=== PATIENT | male | born 1985 | race Two or more races ===

== ENCOUNTER 2022-06-04 23:46 | Emergency (ER) | payer OTHER ==
[2022-06-05] MEDS: Ibuprofen 800 MG Tab PO ONE (00:45)
[2022-06-05] MEDS: Acetaminophen 500 MG Tab PO ONE (00:46)
== END 2022-06-05 01:30 | disposition home or self-care (01) ==
LOC: FB.ED 23:46
DX: S46.912A Strain of unspecified muscle, fascia and tendon at shoulder and upper arm level, left arm, initial encounter (principal); S40.012A Contusion of left shoulder, initial encounter; V47.5XXA Car driver injured in collision with fixed or stationary object in traffic accident, initial encounter; Y92.410 Unspecified street and highway as the place of occurrence of the external cause
CPT/HCPCS: 73030; 99284; A9270